=== PATIENT | male | born 1970 | race Caucasian/White ===

== ENCOUNTER 2016-07-23 08:16 | Emergency (ER) | payer OTHER ==
[2016-07-23 08:44] VITALS: BP 122/72
--- NOTE | 2016-07-23 10:22 | UC ---
Respiratory Complaint HPI - HPI Summary HPI Summary: c/o extremes fatigue and tired, decreased energy. States has productive cough with yellow brown secretions, that if he takes deep breath- goes into "coughing fit" and can not breath. States not eating or drinking. Son diagnosed with flu last week. Sx started 07/20 PM and much worse 07/21. He was not allowed to take off from work bc he did not have a fever when checked by work RN. + body aches , no ST. decreased appetite. denies h/o asthma or copd. former smoker. - History of Current Complaint Chief Complaint: UCRespiratory Stated Complaint: FLU SXS Time Seen by Provider: 07/23/16 08:27 - Allergies/Home Medications Allergies/Adverse Reactions: Allergies Allergy/AdvReac Type Severity Reaction Status Date / Time No Known Allergies Allergy Verified 07/23/16 08:25 Home Medications: Home Medications Dextromethorphan-Phenylephrine [Daytime Cold & Flu Relief 10-5-325 mg] 2 cap PO BID PRN 07/23/16 [History Confirmed 07/23/16] PMH/Surg Hx/FS Hx/Imm Hx Previously Healthy: Yes - Surgical History Surgical History: Yes Surgery Procedure, Year, and Place: Right Knee Surgery, 1998, [place]. Kidney Stone Removed, 2000, [place]. Appendectomy, 2003, [facility] [place] - Family History Known Family History: Negative: Cardiac Disease - Social History Alcohol Use: None Substance Use Type: None Smoking Status (MU): Former Smoker Type: Cigarettes Amount Used/How Often: 1 pk daily Have You Smoked in the Last Year: Yes When Did the Patient Quit Smoking/Using Tobacco: 01/2016 - Immunization History Hx Tetanus, Diphtheria Vaccination: Yes Vaccination Up to Date: Yes Review of Systems Constitutional: Fever, Chills, Fatigue, Other - rpofuse sweating. has improved. Skin: Negative Eyes: Negative ENT: Negative, Nasal Discharge Respiratory: Cough Cardiovascular: Negative Gastrointestinal: Negative Genitourinary: Negative Motor: Negative Neurovascular: Negative Musculoskeletal: Arthralgia, Myalgia Neurological: Negative Psychological: Negative All Other Systems Reviewed And Are Negative: Yes Physical Exam Triage Information Reviewed: Yes Appearance: Ill-Appearing - significant cough. Vital Signs: Initial Vital Signs Temp 98.5 F 07/23/16 08:26 Pulse 84 07/23/16 08:26 Resp 18 07/23/16 08:26 BP 122/72 07/23/16 08:26 Pulse Ox 96 07/23/16 08:26 Vital Signs Reviewed: Yes Eye Exam: Normal ENT: Positive: Hearing grossly normal, Pharyngeal erythema, TMs normal. Negative: Tonsillar swelling, Tonsillar exudate Dental Exam: Normal Neck exam: Normal Neck: Positive: Supple, Nontender, No Lymphadenopathy Respiratory: Positive: Chest non-tender, No accessory muscle use, Decreased breath sounds, Rhonchi, Wheezing. Negative: Crackles, Stridor Cardiovascular Exam: Normal Cardiovascular: Positive: RRR, No Murmur, Pulses Normal, Brisk Capillary Refill Abdomen Description: Positive: Nontender, Soft Musculoskeletal Exam: Normal Neurological Exam: Normal Psychological Exam: Normal Skin Exam: Normal UC Diagnostic Evaluation - Laboratory O2 Sat by Pulse Oximetry: 96 Respiratory Course/Dx - Course Course Of Treatment: + influenza B. Did not get flu shot, I enc him to do so annually per CDC. CXR done - negative. Reviewed with pt. We discussed that he is very contagious. - Differential Dx/Diagnosis Differential Diagnosis/HQI/PQRI: Asthma, Bronchitis, Influenza, Sinusitis, Other - pneumonia Provider Diagnoses: Influneza, bronchitis Discharge - Discharge Plan Condition: Stable Disposition: HOME Prescriptions: Albuterol HFA INHALER* [Ventolin HFA Inhaler*] 2 puff INH Q4H PRN #1 mdi PRN Reason: Cough Oseltamivir CAP* [Tamiflu CAP*] 75 mg PO BID #10 cap Patient Education Materials: Influenza (ED), Acute Bronchitis (ED) Forms: *Gen. Provider Communication Referrals: Kuldeep Galloway MD [Primary Care Provider] - 2 Days Additional Instructions: Lots of fluid and rest. tylenol for pain/fever. You r chest xray is neg for pneumonia. The albuterol puffer will help the cough and wheezing.
--- NOTE | 2016-07-23 10:30 | RAD ---
Indication: Cough, wheezing. 2 views of the chest including dual energy PA views demonstrate no mediastinal shift. Mild pectus deformity is noted. Lung coats demonstrate no pleural fluid, pneumonia or pneumothorax. IMPRESSION: NO ACTIVE CARDIOPULMONARY DISEASE IS NOTED.
== END 2016-07-23 10:51 | disposition home or self-care (01) ==
LOC: UCCORT 08:16
DX: J11.1 Influenza due to unidentified influenza virus with other respiratory manifestations (principal); J40 Bronchitis, not specified as acute or chronic; Z87.891 Personal history of nicotine dependence
CPT/HCPCS: 71020; 87502; 99212; G0463

== ENCOUNTER 2017-09-11 11:45 | Emergency (ER) | payer BC, OTHER ==
[2017-09-11 13:03] VITALS: BP 138/85
--- NOTE | 2017-09-11 13:26 | UC ---
Hip/Pelvis Pain - HPI Summary HPI Summary: Pt c/o left hip and groin pain, that began ~ 2 weeks. ago. Denies injury or previous trauma. Pain is worse with position changes and today, lifted a heavy object at work and stated right hip "gave out" - History Of Current Complaint Chief Complaint: UCLowerExtremity Stated Complaint: RT HIP COMPLAINT Time Seen by Provider: 09/11/17 12:45 Hx Obtained From: Patient Onset/Duration: Gradual Onset, Lasting Weeks, Still Present Timing: Constant Severity Initially: Moderate Severity Currently: Moderate Pain Intensity: 10 Location: Discrete At: - right hip, Radiates To: - right knee Character Of Pain: Dull, Aching Aggravating Factor(s): Movement, Other - positional Alleviating Factor(s): Rest, Position Associated Signs And Symptoms: Positive: Knee Pain - intermittent - Risk Factors Septic Arthritis Risk Factor: Negative - Allergies/Home Medications Allergies/Adverse Reactions: Allergies Allergy/AdvReac Type Severity Reaction Status Date / Time No Known Allergies Allergy Verified 09/11/17 13:05 Home Medications: Home Medications Ibuprofen TAB* [Advil TAB*] 200 mg PO ONCE PRN 09/11/17 [History Confirmed 09/11] PMH/Surg Hx/FS Hx/Imm Hx Previously Healthy: Yes - Surgical History Surgical History: Yes Surgery Procedure, Year, and Place: Right Knee Surgery, 1998, [place]. Kidney Stone Removed, 2000, [place]. Appendectomy, 2003, [facility] [place] - Family History Known Family History: Negative: Cardiac Disease - Social History Occupation: Employed Full-time Lives: With Family Alcohol Use: None Substance Use Type: None Smoking Status (MU): Heavy Every Day Tobacco Smoker Type: Cigarettes Amount Used/How Often: 1 pk daily Have You Smoked in the Last Year: Yes When Did the Patient Quit Smoking/Using Tobacco: 01/2016 - Immunization History Hx Tetanus, Diphtheria Vaccination: Yes Vaccination Up to Date: Yes Review of Systems Constitutional: Negative Skin: Rash - right inner thigh Eyes: Negative ENT: Negative Respiratory: Negative Cardiovascular: Negative Gastrointestinal: Negative Genitourinary: Negative Motor: Negative, Weakness - right hip with position changes Neurovascular: Negative Musculoskeletal: Arthralgia - right hip, Myalgia Neurological: Negative Psychological: Negative Is Patient Immunocompromised?: No All Other Systems Reviewed And Are Negative: Yes Physical Exam Triage Information Reviewed: Yes Appearance: Well-Appearing Vital Signs: Initial Vital Signs Temp 99.1 F 09/11/17 12:52 Pulse 78 09/11/17 12:52 Resp 18 09/11/17 12:52 BP 138/85 09/11/17 12:52 Pulse Ox 99 09/11/17 12:52 Vital Signs Reviewed: Yes Eye Exam: Normal ENT: Positive: Hearing grossly normal Dental Exam: Normal Neck exam: Normal Respiratory Exam: Normal Musculoskeletal Exam: Normal Neurological Exam: Normal Psychological Exam: Normal Skin: Positive: rashes - right upper inner thigh, circular, Diagnostics - Radiology No standard instances Radiology Interpretation Completed By: Radiologist - IMPRESSION: MINOR OSTEOARTHRITIS. HIP MORPHOLOGY PREDISPOSING TO IMPINGEMENT. Hip Injury Course/Dx - Differential Dx/Diagnosis Differential Diagnosis/HQI/PQRI: Arthritis, Sciatica Provider Diagnoses: Arthritis right hip. gracilis muscle strain Discharge - Sign-Out/Discharge Documenting (check all that apply): Discharge/Admit/Transfer - Discharge Plan Condition: Stable Disposition: HOME Patient Education Materials: Groin Strain (ED), Hip Pain (ED), Arthritis (ED) Referrals: Angelito Solorzano MD [Medical Doctor] - If Needed Kuldeep Galloway MD [Primary Care Provider] - If Needed - Billing Disposition and Condition Condition: STABLE Disposition: Home
--- NOTE | 2017-09-11 13:56 | RAD ---
INDICATION: Right hip pain COMPARISON: None TECHNIQUE: An AP view of the pelvis and AP views of the hip in neutral and abducted position were obtained FINDINGS: Bones: There are no acute bony findings. Joint spaces: The hip joint space are preserved. There are minor hypertrophic changes about the acetabula right greater than left there is mild convexity along the lateral aspects of the femoral head /neck bilaterally which will predispose to impingement. SI joints/symphysis: The SI joints and symphysis are intact. Other: None IMPRESSION: MINOR OSTEOARTHRITIS. HIP MORPHOLOGY PREDISPOSING TO IMPINGEMENT.
== END 2017-09-11 14:29 | disposition home or self-care (01) ==
LOC: UCCORT 11:45
DX: S76.811A Strain of other specified muscles, fascia and tendons at thigh level, right thigh, initial encounter (principal); M13.851 Other specified arthritis, right hip; R10.32 Left lower quadrant pain; M25.552 Pain in left hip; F17.210 Nicotine dependence, cigarettes, uncomplicated; M25.569 Pain in unspecified knee; R21 Rash and other nonspecific skin eruption; X50.9XXA Other and unspecified overexertion or strenuous movements or postures, initial encounter; Y93.89 Activity, other specified; Y92.9 Unspecified place or not applicable
CPT/HCPCS: 99211; G0463